=== PATIENT | female | born 1965 | race Caucasian/White ===

== ENCOUNTER → 2018-12-26 09:53 | Outpatient (CLI) | payer OTHER, SELFPAY ==
[2018-12-26 11:02] LABS: Add Manual Diff / Slide Review NO; Basophils Absolute Auto 0 /uL (0-100); Basophils Percent Auto 0.7 % (0-2); Eosinophils Absolute Auto 100 /uL (0-450); Eosinophils Percent Auto 1.9 % (2-4); Hemoglobin 13.7 g/dL (12.0-16.0); Lymphocytes Absolute Auto 1500 /uL (1100-4500); Mean Corpuscular HGB Conc 32.7 % (30-36); Mean Corpuscular Hemoglobin 29.5 PG (26-34); Mean Corpuscular Volume 90.3 fL (80-100); Monocytes Absolute Auto 500 /uL (0-900); Monocytes Percent Auto 8.8 % (3-14); Neutrophils Absolute Auto 4000 /uL (1500-7000); Neutrophils Percent Auto 64.6 % (50-75); Platelet Count 315 X10^3/uL (150-400); Red Blood Cell Count 4.65 X10^6/uL (4.0-5.2); Red Cell Distribution Width 13.9 % (11.6-14.8); White Blood Cell Count 6.2 X10^3/uL (4.5-11.0)
[2018-12-26 11:24] LABS: Creatinine Urine Random 197.8 mg/dL
[2018-12-26 11:26] LABS: Alanine Aminotransferase 25 IU/L (9-52); Albumin 4.8 g/dL (3.5-5.0); Albumin Globulin Ratio 1.5 (1.0-2.8); Alkaline Phosphatase 82 U/L (38-126); Aspartate Aminotransferase 26 IU/L (14-36); BUN Creatinine Ratio 28.3 (6-22); Bilirubin Total 0.4 mg/dL (0.2-1.3); Blood Urea Nitrogen 17 mg/dL (7-17); Calcium 9.9 mg/dL (8.4-10.2); Carbon Dioxide 29 mmol/L (22-32); Chloride 102 mmol/L (98-107); Cholesterol 249 mg/dL (140-199); Estimated Glomerular Filt Rate > 60.0 mL/min (>60); Globulin 3.1 g/dL (1.7-4.1); Glucose 111 mg/dL (70-100); HDL Cholesterol 56 mg/dL (40-60); HEMOLYSIS < 15 (0-50); LDL Cholesterol Calculated 167 mg/dL (<100); Potassium 4.2 mmol/L (3.4-5.1); Sodium 140 mmol/L (137-145); Total Protein 7.9 g/dL (6.3-8.2); Triglycerides 129 mg/dL (35-150)
[2018-12-26 11:30] LABS: Microalbumi Creatinin Ratio Ur 7.5 ug/mg CR (<30); Microalbumin Urine Random 1.5 mg/dL (0-1.6)
[2018-12-26 11:57] LABS: Thyroid Stimulating Hormone 4.86 uIU/mL (0.47-4.68)
== END ==
PROVIDERS: PCP Physician Assistant; Visit Provider Physician Assistant
DX: Z00.00 Encounter for general adult medical examination without abnormal findings (principal); Z13.1 Encounter for screening for diabetes mellitus; Z13.220 Encounter for screening for lipoid disorders; Z13.6 Encounter for screening for cardiovascular disorders
CPT/HCPCS: 36415; 80053; 80061; 82043; 82570; 84443; 85025

== ENCOUNTER → 2019-01-19 14:50 | Outpatient (CLI) | payer OTHER, SELFPAY ==
--- NOTE | 2019-01-19 14:51 | DI.MG.S_ITS ---
BILATERAL DIGITAL SCREENING MAMMOGRAM 3D/2D WITH CAD: 01/19/2019 CLINICAL: Routine screening. Comparison is made to exams dated: 08/12/2016 mammogram, 07/31/2012 mammogram, and 03/21/2007 mammogram - [facility]. There are scattered fibroglandular elements in both breasts. Current study was also evaluated with a Computer Aided Detection (CAD) system. There is possible developing architectural distortion in the right breast at 11 o'clock middle depth. No other significant masses, calcifications, or other findings are seen in either breast. IMPRESSION: INCOMPLETE: NEEDS ADDITIONAL IMAGING EVALUATION The possible developing architectural distortion in the right breast is indeterminate. Additional views with possible ultrasound are recommended. This exam was interpreted at Station ID: [id number]. NOTE: For mammograms, a report in lay terms will be sent to the patient. Approximately 15% of breast malignancies will not be visualized mammographically. In the management of a palpable breast mass, a negative mammogram must not discourage biopsy of a clinically suspicious lesion. Electronically Signed By: Paula oliva/eunice:01/19/2019 16:47:52 letter sent: Additional Imaging Needed ACR BI-RADS Category 0: Incomplete 3340F
== END ==
PROVIDERS: PCP Physician Assistant; Visit Provider Physician Assistant
DX: Z12.31 Encounter for screening mammogram for malignant neoplasm of breast (principal)
CPT/HCPCS: 77063; 77067

== ENCOUNTER → 2019-02-01 08:40 | Outpatient (CLI) | payer OTHER, MEDICAID, SELFPAY ==
--- NOTE | 2019-02-01 08:44 | DI.US.S_ITS ---
LIMITED ULTRASOUND OF RIGHT BREAST AND AXILLA: 02/01/2019 CLINICAL: Additional evaluation requested from prior study. Comparison is made to exams dated: 02/01/2019 mammogram, 01/19/2019 mammogram, 08/12/2016 mammogram, 07/31/2012 mammogram, and 03/21/2007 mammogram - [facility]. Ultrasound of the right breast outer aspect and axilla regions was performed. There is an irregular mass with an indistinct margin in the right breast at 8 o'clock anterior depth. This irregular mass displays posterior acoustic shadowing. Color flow imaging demonstrates that there is increased vascularity. There also is a mass with an echogenic, indistinct margin in the right breast at 9 o'clock middle depth. This mass displays posterior acoustic shadowing. Additionally, there is 1.3 cm x 0.7 cm x 0.7 cm mass with an angular margin in the right breast at 10 o'clock anterior depth. Right axillary lymph node is normal size with benign features. IMPRESSION: SUSPICIOUS OF MALIGNANCY Multiple irregular hypoechoic areas in the lateral right breast, intermediate suspicion for malignancy. Many of these areas are ill defined, and partially obscured by dense shadow. A biopsy is recommended. Stereotactic biopsy of 3 discrete areas or lumpectomy is recommended based on more distinct mammographic features. Findings and recommendations were discussed with the patient. Follow up will be obtained at an outside institution due to the patient's upcoming move out of the area. This exam was interpreted at Station ID: [id number]. Electronically Signed By: Linn riggs/:02/01/2019 12:09:02 letter sent: Biopsy Required Ultrasound BI-RADS: 4c Suspicious abnormality - moderate concern but not classic for malignancy
--- NOTE | 2019-02-01 08:44 | DI.MG.S_ITS ---
UNILATERAL RIGHT DIGITAL DIAGNOSTIC MAMMOGRAM 3D/2D WITH ADDITIONAL VIEWS: 02/01/2019 CLINICAL: Additional evaluation requested from prior study. Comparison is made to exams dated: 01/19/2019 mammogram, 08/12/2016 mammogram, and 07/31/2012 mammogram - [facility]. There are scattered fibroglandular elements in right breast. There is architectural distortion in the right breast at 8 o'clock anterior depth. There also is a 2 cm irregular mass in the right breast at 9 o'clock middle depth. There is architectural distortion associated with the mass. Additionally, there is a 7 mm oval mass with a circumscribed margin in the right breast anterior depth superior region seen on the mediolateral oblique view only. There is architectural distortion associated with the mass. No other significant masses or calcifications are seen in the breast. IMPRESSION: INCOMPLETE: NEEDS ADDITIONAL IMAGING EVALUATION The architectural distortion in the right breast at 8 o'clock anterior depth is indeterminate. The 2 cm irregular mass in the right breast at 9 o'clock middle depth is indeterminate. The 7 mm oval mass in the right breast anterior depth superior region seen on the mediolateral oblique view only is indeterminate. An ultrasound is recommended for further evaulation of all areas. This was performed immediately following this study. This exam was interpreted at Station ID: [id number]. NOTE: For mammograms, a report in lay terms will be sent to the patient. Approximately 15% of breast malignancies will not be visualized mammographically. In the management of a palpable breast mass, a negative mammogram must not discourage biopsy of a clinically suspicious lesion. Electronically Signed By: Linn riggs/:02/01/2019 11:34:56 ACR BI-RADS Category 0: Incomplete 3340F
== END ==
PROVIDERS: PCP Physician Assistant; Visit Provider Physician Assistant
DX: R92.8 Other abnormal and inconclusive findings on diagnostic imaging of breast (principal); N63.10 Unspecified lump in the right breast, unspecified quadrant
CPT/HCPCS: 76642; 77065; G0279